=== PATIENT | male | born 1990 | race Hispanic/Latino ===

== ENCOUNTER 2019-10-10 01:29 | Emergency (ER) | payer SELFPAY ==
[2019-10-10] MEDS ORDERED: KETOROLAC 30 MG/ML INJ ONE (02:40)
[2019-10-10] MEDS ORDERED: CYCLOBENZAPRINE 10 MG TAB ONE (02:40)
[2019-10-10] MEDS ORDERED: HYDROCODONE/APAP 5/325 MG TAB ONE (02:40)
--- NOTE | 2019-10-10 03:23 | EDPHYS ---
Physician Documentation [facility] Name: Moisés Hanson JR. Age: 28 yrs Sex: Male : 1990 Arrival Date: 10/10/2019 Time: 01:30 Bed 7 Private MD: ED Physician John Zamora HPI: 10/09 03:13 This 28 yrs old Male presents to ER via Ambulatory with complaints of tw4 Abdominal Pain - left side/left back pain. 03:13 The patient presents with pain and deformity. The symptoms are located in the low back. tw4 Onset: The symptoms/episode began/occurred today. The pain does not radiate. Modifying factors: The patient symptoms are alleviated by nothing, the patient symptoms are aggravated by nothing. Historical: - Allergies: :39 No Known Allergies; sg - Home Meds: :39 None [Active]; sg - PMHx: :39 None; sg - PSHx: :39 Appendectomy; sg - Immunization history:: Adult Immunizations up to date. - Social history:: Smoking status: Patient reports the use of cigarette tobacco products. ROS: 03:13 Constitutional: Negative for fever, chills, and weight loss, Eyes: Negative for injury, tw4 pain, redness, and discharge, Cardiovascular: Negative for chest pain, palpitations, and edema, Respiratory: Negative for shortness of breath, cough, wheezing, and pleuritic chest pain, Abdomen/GI: Negative for abdominal pain, nausea, vomiting, diarrhea, and constipation, MS/Extremity: Negative for injury and deformity, Skin: Negative for injury, rash, and discoloration, Neuro: Negative for headache, weakness, numbness, tingling, and seizure. 03:13 Back: Positive for pain at rest, pain with movement. Exam: 03:13 Constitutional: This is a well developed, well nourished patient who is awake, alert, tw4 and in no acute distress. Head/Face: Normocephalic, atraumatic. Cardiovascular: Regular rate and rhythm with a normal S1 and S2. No gallops, murmurs, or rubs. Normal PMI, no JVD. No pulse deficits. Respiratory: Lungs have equal breath sounds bilaterally, clear to auscultation and percussion. No rales, rhonchi or wheezes noted. No increased work of breathing, no retractions or nasal flaring. Abdomen/GI: Soft, non-tender, with normal bowel sounds. No distension or tympany. No guarding or rebound. No evidence of tenderness throughout. Skin: Warm, dry with normal turgor. Normal color with no rashes, no lesions, and no evidence of cellulitis. Vital Signs: 02:06 BP 128 / 89; Pulse 80; Resp 18; Temp 98.1; Pulse Ox 98% ; Weight 102.06 kg; Height 5 ea ft. 9 in. (175.26 cm); Pain 8/10; 03:23 BP 113 / 89; Pulse 94; Resp 20; Temp 98.0; Pulse Ox 97% on R/A; Pain 5/10; lw1 02:06 Body Mass Index 33.23 (102.06 kg, 175.26 cm) ea MDM: 01:47 Patient medically screened. tw4 06:01 Data reviewed: vital signs, nurses notes. Counseling: I had a detailed discussion with [facility] the patient and/or guardian regarding: the historical points, exam findings, and any diagnostic results supporting the discharge/admit diagnosis. Medication response: morphine relieved the patient's pain. Symptoms have resolved. Response to treatment: the patient's symptoms have mildly improved after treatment, and as a result, I will discharge patient. 03 01:47 Order name: Basic Metabolic Panel [facility] 10/09 01:47 Order name: Urine Dipstick-Ancillary (obtain specimen) 4 Administered Medications: 02:43 Drug: [place] 5 mg-325 mg 1 tabs Route: PO; ea 03:08 Follow up: Response: No adverse reaction ea 02:43 Drug: TORadol 60 mg Route: IM; Site: left gluteus; ea 03:08 Follow up: Response: No adverse reaction ea 02:43 Drug: Flexeril 10 mg Route: PO; ea 03:08 Follow up: Response: No adverse reaction ea Disposition: 10/10/19 03:22 Discharged to Home. Impression: Sprain of ligaments of thoracic spine. - Condition is Stable. - Discharge Instructions: Thoracic Strain. - Prescriptions for Ibuprofen 800 mg Oral Tablet - take 1 tablet by ORAL route every 8 hours As needed take with food; 30 tablet. Tramadol 50 mg Oral Tablet - take 1 tablet by ORAL route every 8 hours as needed; 12 tablet. Cyclobenzaprine 5 mg Oral Tablet - take 1 tablet by ORAL route 3 times per day As needed; 15 tablet. - Thank You Letter, Work release form form. - Follow up: Private Physician; When: Upon discharge from the Emergency Department; Reason: Recheck today's complaints, Continuance of care, Re-evaluation by your physician. - Problem is new. - Symptoms have improved. Signatures: Dispatcher [employer] EDEmil Servin RN RN sg Antunez, Elena, RN RN ea Wadley, Terrence, MD MD tw Corrections: (The following items were deleted from the chart) 02: 01:47 IV Saline Lock ordered. [facility] 01:47 Labs collected and sent ordered. [facility] 03:43 03:22 10/10/2019 03:22 Discharged to Home. Impression: Sprain of ligaments of thoracic sg spine. Condition is Stable. Forms are Medication Reconciliation Form, Thank You Letter, Antibiotic Education, Prescription Opioid Use. Follow up: Private Physician; When: Upon discharge from the Emergency Department; Reason: Recheck today's complaints, Continuance of care, Re-evaluation by your physician. Problem is new. Symptoms have improved.
--- NOTE | 2019-10-10 03:23 | ER ---
Nurse's Notes [facility] Name: Moisés Hanson JR. Age: 28 yrs Sex: Male : 1990 Arrival Date: 10/10/2019 Time: 01:30 Bed 7 Private MD: Diagnosis: Sprain of ligaments of thoracic spine Presentation: 10/09 01:38 Chief complaint: Patient states: abd pain and side pain for several days, worsening a sg few hours KNOCKER OUT, pt reports nausea that has come and gone as well. Coronavirus screen: The patient has NOT traveled to a country currently being monitored by the [facility] within the last 14 days. The patient has NOT had contact with any known and/or suspected case of coronavirus. Ebola Screen: Patient negative for fever greater than or equal to 101.5 degrees Fahrenheit, and additional compatible Ebola Virus Disease symptoms Patient denies exposure to infectious person. Patient denies travel to an Ebola-affected area in the 21 days before illness onset. No symptoms or risks identified at this time. Initial Sepsis Screen: Does the patient meet any 2 criteria? No. Patient's initial sepsis screen is negative. Does the patient have a suspected source of infection? No. Patient's initial sepsis screen is negative. Risk Assessment: Do you want to hurt yourself or someone else? Patient reports no desire to harm self or others. 01:38 Method Of Arrival: Ambulatory 01:38 Acuity: LINDA 3 sg Triage Assessment: 02:04 General: Appears uncomfortable, Behavior is appropriate for age. Pain: Complains of ea pain in low back area and left flank. Neuro: Level of Consciousness is awake, alert, obeys commands, Oriented to person, place, time. Cardiovascular: Patient's skin is warm and dry. Respiratory: Airway is patent Respiratory effort is even, unlabored, Respiratory pattern is regular, symmetrical. GI: Abdomen is non-distended, Patient currently denies diarrhea, nausea, vomiting. Derm: Skin is pink, warm \T\ dry. Musculoskeletal: Reports pain in low back area and left flank. Historical: - Allergies: 01:39 No Known Allergies; sg - Home Meds: 01:39 None [Active]; sg - PMHx: 01:39 None; sg - PSHx: 01:39 Appendectomy; sg - Immunization history:: Adult Immunizations up to date. - Social history:: Smoking status: Patient reports the use of cigarette tobacco products. Screenin:06 Abuse screen: Denies threats or abuse. Nutritional screening: No deficits noted. ea Tuberculosis screening: No symptoms or risk factors identified. Fall Risk None identified. Assessment: 02:07 Reassessment: see triage assessment. ea 03:37 GI: lw1 Vital Signs: 02:06 BP 128 / 89; Pulse 80; Resp 18; Temp 98.1; Pulse Ox 98% ; Weight 102.06 kg; Height 5 ea ft. 9 in. (175.26 cm); Pain 8/10; 03:23 BP 113 / 89; Pulse 94; Resp 20; Temp 98.0; Pulse Ox 97% on R/A; Pain 5/10; lw1 02:06 Body Mass Index 33.23 (102.06 kg, 175.26 cm) ea ED Course: 01:30 Patient arrived in ED. ds1 01:39 Triage completed. sg 01:39 Arm band placed on. sg 01:47 John Zamora MD is Attending Physician. tw4 02:04 Laura Luna, DARA is Primary Nurse. ea 02:07 Patient has correct armband on for positive identification. Bed in low position. Call ea light in reach. 03:23 Patient did not have IV access during this emergency room visit. lw1 03:37 No provider procedures requiring assistance completed. lw1 Administered Medications: 02:43 Drug: [place] 5 mg-325 mg 1 tabs Route: PO; ea 03:08 Follow up: Response: No adverse reaction ea 02:43 Drug: TORadol 60 mg Route: IM; Site: left gluteus; ea 03:08 Follow up: Response: No adverse reaction ea 02:43 Drug: Flexeril 10 mg Route: PO; ea 03:08 Follow up: Response: No adverse reaction ea Outcome: 03:22 Discharge ordered by . tw4 03:38 Discharged to home ambulatory. lw1 03:38 Condition: improved 03:38 Discharge instructions given to patient, family, Instructed on discharge instructions, follow up and referral plans. medication usage, Demonstrated understanding of instructions, follow-up care, medications, Prescriptions given X 3. 03:43 Patient left the ED. sg Signatures: Emil Centeno RN RN Lanny Morton ds1 Laura Luna RN RN John Arroyo MD MD tw4 Dorian Osborne RN RN lw1 Corrections: (The following items were deleted from the chart) 02:04 01:38 Chief complaint: Patient states: abd pain for several days, worsening a few hours sg KNOCKER OUT, pt reports nausea as well sg
[2019-10-10 03:54] VITALS: BP 113/89; TEMP 98; O2SAT 97
== END 2019-10-10 03:43 | disposition home or self-care (01) ==
LOC: ER 01:29
DX: S23.3XXA Sprain of ligaments of thoracic spine, initial encounter (principal); X58.XXXA Exposure to other specified factors, initial encounter; Y93.9 Activity, unspecified; Y92.9 Unspecified place or not applicable; F17.210 Nicotine dependence, cigarettes, uncomplicated
CPT/HCPCS: 96372; 99283